=== PATIENT | male | born 1985 | race Caucasian/White ===

== ENCOUNTER 2016-12-18 10:39 | Emergency (ER) | payer OTHER ==
[2016-12-18 10:50] VITALS: BP 137/69
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
[2016-12-18] MEDS ORDERED: DIPH/PERTUSS(ACELL)/TETANUS VAC/PF 0.5 ML SYR (>=10YO) IM ONE (11:06)
== END 2016-12-18 12:35 | disposition home or self-care (01) ==
LOC: ER 10:39
PROC: 2W3EX1Z Immobilization of Right Hand using Splint (ICD-10-PCS; principal; 2016-12-18)
DX: S62.336A Displaced fracture of neck of fifth metacarpal bone, right hand, initial encounter for closed fracture (principal); W22.09XA Striking against other stationary object, initial encounter; F17.210 Nicotine dependence, cigarettes, uncomplicated; F43.10 Post-traumatic stress disorder, unspecified; Z23 Encounter for immunization
CPT/HCPCS: 99283; 90471; 73130; 29125; L3650

== ENCOUNTER 2017-12-14 03:37 | Emergency (ER) | payer OTHER ==
[2017-12-14 03:41] VITALS: BP 115/72
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
== END 2017-12-14 05:30 | disposition home or self-care (01) ==
LOC: ER 03:37
DX: S80.00XA Contusion of unspecified knee, initial encounter (principal); M54.9 Dorsalgia, unspecified; M79.606 Pain in leg, unspecified; V03.00XA Pedestrian on foot injured in collision with car, pick-up truck or van in nontraffic accident, initial encounter; Y92.481 Parking lot as the place of occurrence of the external cause
CPT/HCPCS: 72070; 72100; 99283

== ENCOUNTER 2019-02-09 09:14 | Emergency (ER) | payer OTHER ==
[2019-02-09 09:19] VITALS: BP 140/82
[2019-02-09] MEDS ORDERED: PREDNISONE 20 MG TABLET PO ONE (09:37)
--- NOTE | 2019-02-09 09:42 | ER Document Report ---
HPI - HPI Patient complains to provider of: Low back pain Time Seen by Provider: 02/09/19 09:22 Onset: Yesterday Onset/Duration: Sudden Quality of pain: Achy Severity: Severe Pain Level: 4 Context: Patient presents the emergency department with low back pain. 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 Reports increased pain when he sits down and standing back up. Reports history of back pain for which he was discharged from the for. Patient reports he never had surgery for the back pain. Denies urinary or bowel incontinence or retention but reports he has not had a bowel movement today. Denies fever vomiting diarrhea. Patient is ambulating around the exam room without problems. Reports tingling to the first 3 digits of bilateral hands intermittent. Denies using IV drugs. 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 Family History: Reviewed & Not Pertinent Patient has suicidal ideation: No Patient has homicidal ideation: No Renal/ Medical History: Denies: Hx Peritoneal Dialysis GI Medical History: Reports: Hx Gastroesophageal Reflux Disease Psychiatric Medical History: Reports: Hx Depression - ptsd, Hx Post Traumatic Stress Disorder Traumatic Medical History: Reports: Hx Fractures, Hx Traumatic Brain Injury Surgical Hx: Negative - Immunizations Hx Diphtheria, Pertussis, Tetanus Vaccination: Yes Vertical Provider Document - CONSTITUTIONAL Agree With Documented VS: Yes Exam Limitations: No Limitations General Appearance: WD/WN, No Apparent Distress - pt ambulating around room, laughs easily - INFECTION CONTROL TRAVEL OUTSIDE OF THE [place] IN LAST 30 DAYS: No - HEENT HEENT: Atraumatic, Normocephalic - NECK Neck: Normal Inspection, Supple. negative: Lymphadenopathy-Left, Lymphadenopathy-Right - RESPIRATORY Respiratory: Breath Sounds Normal, No Respiratory Distress - CARDIOVASCULAR Cardiovascular: Regular Rate, Regular Rhythm - GI/ABDOMEN Gastrointestinal: Abdomen Non-Tender - BACK Back: Normal Inspection - No obvious deformity good distal movement and sensation no weakness is good reflexes complains of pain to the low barback to palpation. negative: CVA Tenderness-Right, CVA Tenderness-Left - MUSCULOSKELETAL/EXTREMETIES Musculoskeletal/Extremeties: FARHAT FRANKLIN - NEURO Level of Consciousness: Awake, Alert, Appropriate Motor/Sensory: No Motor Deficit - DERM Integumentary: Warm, Dry Adult Front & Back Diagram: 1 - Reports pain 2 - Reports pain Course - Re-evaluation Re-evalutation: 02/09/19 Patient ambulated out the door without problems. He was instructed on red flags of back pain return for concerns. He verbalized understanding to all instructions. Low suspicion for any meningitis, fracture, expanding/ruptured AAA, cauda equina syndrome, epidural mass lesion/abscess, herniated disc causing severe spinal stenosis, or other systemic infection at this time. Patient is aware that this condition can change from initial presentation and that she needs monitor symptoms closely for any acute changes. Dictation of this chart was performed using voice recognition software; therefore, there may be some unintended grammatical errors. - Vital Signs Vital signs: Temp Pulse Resp BP Pulse Ox 97.8 F 87 16 140/82 H 97 02/09/19 09:18 02/09/19 09:18 02/09/19 09:18 02/09/19 09:18 02/09/19 09:18 Discharge - Discharge Clinical Impression: Back pain Condition: Stable Disposition: HOME, SELF-CARE Instructions: Ibuprofen (General) (OM), Ice Packs (OM), Low Back Pain (OM), Steroid Medication, Toradol Injection (OM) Additional Instructions: *You have been evaluated for low back pain, muscle strain *Take medication as prescribed *Rest/Ice packs as directed Protect your back do not lift weights monitor how you turn *[facility] and referral to [facility]opedics as indicated. *Return to ED for worsening condition, changes, needs Monitor your blood pressure. Your blood pressure was elevated today. This may be because you were anxious, in pain or because you need medication. It is important to follow up with your primary care provider for full evaluation. Prescriptions: Ibuprofen [Motrin 800 mg Tablet] 800 mg PO TID #30 tablet Prednisone [Deltasone 10 mg Tablet] 10 mg PO ASDIR PRN #21 tablet PRN Reason: Forms: Elevated Blood Pressure, Return to Work Referrals: [facility] [Primary Care Provider] - Follow up in 3-5 days
[2019-02-09] MEDS ORDERED: KETOROLAC TROMETHAMINE 60 MG/2 ML SDV IM ONE (09:46)
== END 2019-02-09 09:54 | disposition home or self-care (01) ==
LOC: ER 09:14
DX: M54.5 Low back pain (principal); X50.0XXA Overexertion from strenuous movement or load, initial encounter; Y99.0 Civilian activity done for income or pay
CPT/HCPCS: 99283; 96374; J1885; J7512